=== PATIENT | male | born 1985 | race African-American/Black ===

== ENCOUNTER 2017-08-20 17:16 | Emergency (ER) | payer SELFPAY ==
[~2017-08-20] VITALS: Ht 160 cm; Wt 80.0 kg
[2017-08-20 17:18] VITALS: BP 140/87
[2017-08-20] MEDS ORDERED: IPRATROPIUM BROMIDE (0.02%) 0.5MG/2.5ML NEB HHN STA (17:49)
[2017-08-20] MEDS ORDERED: ALBUTEROL (0.083%) 2.5MG/3ML NEB HHN STA (17:49)
== END 2017-08-20 19:01 | disposition home or self-care (01) ==
LOC: ER 17:40
DX: J45.909 Unspecified asthma, uncomplicated (principal); F17.200 Nicotine dependence, unspecified, uncomplicated
CPT/HCPCS: 94640; 99283; J7611